=== PATIENT | female | born 1985 | race African-American/Black ===

== ENCOUNTER → 2016-08-30 | Outpatient (CLI) | payer SELFPAY ==
[~2016-08-30] MED LIST: PHEN100 PO
== END ==
LOC: CLAB 12:47
PROVIDERS: ATTEND Specialist
DX: Z51.81 Encounter for therapeutic drug level monitoring (principal)
CPT/HCPCS: 36415; 80185

== ENCOUNTER → 2016-10-31 | Outpatient (CLI) | payer SELFPAY | LOC: CLAB 12:54 | PROVIDERS: ATTEND Specialist | DX: Z51.81 Encounter for therapeutic drug level monitoring (principal) | CPT/HCPCS: 36415; 80185 ==